=== PATIENT | female | born 1970 | race Two or more races ===

== ENCOUNTER 2025-02-08 02:30 | Emergency (ER) | payer OTHER ==
[~2025-02-08] VITALS: Ht 167.6 cm; Wt 72.8 kg
[2025-02-08 02:54] VITALS: BP 143/9; RESP 20; TEMP 97.6; O2SAT 98
[2025-02-08 02:55] VITALS: PULSE 81
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
[2025-02-08] MEDS ORDERED: ACETAMINOPHEN 325 MG TAB PO ONE (03:00)
--- NOTE | 2025-02-08 03:11 | ECG ---
[facility] Test Date: 2025-02-08 Test Time: 02:30:24 Pat Name: JUAN REGAN Department: ED Room: Gender: F Stars Analytical Lead: jessica : 1970 Requested By: KYRA QUINTANA Order Number: [id number] Reading MD: Marin Starks Measurements Intervals Marshall Rate: 81 P: -21 NM: 150 QRS: 3 QRSD: 95 T: -30 QT: 393 QTc: 457 Interpretive Statements Sinus rhythm Low voltage, precordial leads Probable left ventricular hypertrophy Borderline T abnormalities, inferior leads Electronically Signed On 02-08-2025 19:08:29 PDT by Marin Starks Please click the below link to view image of tracing.
== END 2025-02-08 03:15 | disposition left against medical advice (07) ==
LOC: EDBD 02:30 → ER 02:30
DX: R07.89 Other chest pain (principal)
CPT/HCPCS: 93005